=== PATIENT | female | born 1985 ===

== ENCOUNTER 2016-07-08 08:21 | Day surgery (SDC) | payer OTHER ==
--- NOTE | 2016-07-07 19:13 | HISTORY AND PHYSICAL ---
ADMITTED: 07/08/2016 HISTORY OF PRESENT ILLNESS: The patient is a 30-year-old female who presents with a painful left fifth toe. She states it is symptomatic and painful since she had previous surgery there several years ago; however, it was unsuccessful, says it is now painful with shoe gear and she participates in [employer]. MEDICAL/SURGICAL HISTORY: Past medical history: Noncontributory. Surgical history: As stated, the previous surgery on her fifth toe, left foot, several years ago. MEDICATIONS: 1. Currently on no medications. ALLERGIES: 1. REPORTS NO DRUG OR FOOD ALLERGIES. SOCIAL HISTORY: She is single. Employed at [employer]. Smokes minimally to 5 cigarettes per day. Drinks socially. FAMILY HISTORY: Noncontributory to chief complaint. REVIEW OF SYSTEMS: Ten-point review of systems noncontributory to chief complaint. PHYSICAL EXAMINATION: GENERAL: The patient is alert, oriented x3. HEENT: PERRLA. Normocephalic. HEART: Regular rate and rhythm. Regular S1 and S2. LUNGS: Respiration clear to auscultation. No wheezing, rhonchi, or rales. ABDOMEN: Soft, tender, nondistended. No palpable masses. EXTREMITIES: Lower extremity/Vascular: DP and PT pulses are palpable. Skin texture and turgor within normal limits. NEUROLOGIC: Deep tendon reflexes, epicritic sensations are intact. Muscle strength: Dorsiflexion, plantarflexion, inversion/eversion are intact bilaterally, increased, symmetrical. There is pain on palpation to the distal aspect of the fifth toe, particularly subungually. LAB/IMAGING: Imaging taken at [facility] revealed an exostosis of the distal phalanx consistent in projecting up through the nail bed. IMPRESSION: 1. Exostosis fifth digit distal phalanx, left foot. PLAN: The patient is scheduled for an outpatient procedure consisting of exostectomy of the fifth digit, left foot. No contraindications to surgery at this time. Surgery is scheduled on outpatient basis at [facility] 07/08/2016.
--- NOTE | 2016-07-07 19:13 | HISTORY AND PHYSICAL ---
ADMITTED: 07/08/2016 HISTORY OF PRESENT ILLNESS: The patient is a 30-year-old female who presents with a painful left fifth toe. She states it is symptomatic and painful since she had previous surgery there several years ago; however, it was unsuccessful, says it is now painful with shoe gear and she participates in [employer]. MEDICAL/SURGICAL HISTORY: Past medical history: Noncontributory. Surgical history: As stated, the previous surgery on her fifth toe, left foot, several years ago. MEDICATIONS: 1. Currently on no medications. ALLERGIES: 1. REPORTS NO DRUG OR FOOD ALLERGIES. SOCIAL HISTORY: She is single. Employed at [employer]. Smokes minimally to 5 cigarettes per day. Drinks socially. FAMILY HISTORY: Noncontributory to chief complaint. REVIEW OF SYSTEMS: Ten-point review of systems noncontributory to chief complaint. PHYSICAL EXAMINATION: GENERAL: The patient is alert, oriented x3. HEENT: PERRLA. Normocephalic. HEART: Regular rate and rhythm. Regular S1 and S2. LUNGS: Respiration clear to auscultation. No wheezing, rhonchi, or rales. ABDOMEN: Soft, tender, nondistended. No palpable masses. EXTREMITIES: Lower extremity/Vascular: DP and PT pulses are palpable. Skin texture and turgor within normal limits. NEUROLOGIC: Deep tendon reflexes, epicritic sensations are intact. Muscle strength: Dorsiflexion, plantarflexion, inversion/eversion are intact bilaterally, increased, symmetrical. There is pain on palpation to the distal aspect of the fifth toe, particularly subungually. LAB/IMAGING: Imaging taken at [facility] revealed an exostosis of the distal phalanx consistent in projecting up through the nail bed. IMPRESSION: 1. Exostosis fifth digit distal phalanx, left foot. PLAN: The patient is scheduled for an outpatient procedure consisting of exostectomy of the fifth digit, left foot. No contraindications to surgery at this time. Surgery is scheduled on outpatient basis at [facility] 07/08/2016.
[~2016-07-08] VITALS: Ht 160 cm; Wt 61.1 kg
--- NOTE | 2016-07-08 10:25 | Provider's Discharge Care Plan ---
Problem, Goal, Plan Problem List 1. Hypertrophy of bone, left ankle and foot Goals: Improve function Instructions: Follow up as directed
--- NOTE | 2016-07-08 10:25 | Provider's Discharge Care Plan ---
Problem, Goal, Plan Problem List 1. Hypertrophy of bone, left ankle and foot Goals: Improve function Instructions: Follow up as directed
[2016-07-08] MEDS ORDERED: ZOFRAN4 MG PO (10:26)
[2016-07-08] MEDS ORDERED: PERCOCET1 TA4 PO (10:26)
[2016-07-08] MEDS ORDERED: CEPHALEXIN500 MG PO (10:32)
--- NOTE | 2016-07-08 11:02 | OPERATIVE REPORT ---
DATE OF SURGERY: 07/08/2016 SURGEON: Willie Brady DPM PREOPERATIVE DIAGNOSIS: 1. Exostosis, fifth digit, left foot POSTOPERATIVE DIAGNOSES: 1. Exostosis, fifth digit, left foot PROCEDURE PERFORMED: 1. Exostectomy, fifth digit, left foot ANESTHESIA: IV sedation with local, local being 6 mL of 0.5% bupivacaine plain. HEMOSTASIS: Achieved by a [place] drain. MATERIALS: 3-0 and 4-0 Surgipro. COMPLICATIONS: None. CONDITION: The patient tolerated anesthesia and procedure well. INDICATIONS: The patient is a 30-year-old female with a chief complaint of a painful fifth digit, left foot. She had previously had surgery there. There was redundant hypertrophy of bone which is painful. She has exhausted conservative care and would like to proceed with surgical intervention. All pre, divya and postoperative course are covered in detail as well as planned procedure. No contraindications to surgery at this time. SURGICAL TECHNIQUE: The patient was brought to the operating room and placed on the table in the supine position. At this time, IV sedation LMA was carried out. The left lower extremity was prepped and draped in normal sterile fashion. An intraoperative pause was carried out for positive identification, proper limb, and consent form verified and confirmed. Attention was then directed to procedure #1. Exostectomy, fifth digit, left foot: At this time, a [place] [employer] drain was then placed at the base of the fifth digit and engaged with a curved hemostat. A fishmouth incision was made distally. With the aid of fluoroscopy, the hypertrophied distal phalanx was visualized with fluoroscopy guidance. Periosteal elevator was utilized to reflect the periosteum. A bone rongeur was then used to reduce the hypertrophied bone. A handheld rasp was used to rasp down to a smooth level and contoured. The area was flushed. Verified under fluoroscopy for no longer any hypertrophied bone and was now smooth and flush. The skin edge was then reapproximated with 4-0 Polysorb. The Chery was released, the toe was locally anesthetized with the aforementioned anesthetic of 6 mL. A light compressive dressing was applied. The patient tolerated anesthesia and procedure well and left the operating room with vital signs stable. While in recovery, written instructions of weightbearing to tolerance with the aid of a postoperative shoe. Prognosis is guarded. She will be discharged home in stable condition.
[2016-07-08 12:34] VITALS: BP 108/75
== END 2016-07-08 12:53 | disposition home or self-care (01) ==
LOC: SDC SRH 08:21 → SCU SRH 08:21 → SDC SRH 09:30 → OR SRH 10:30 → SDC SRH 12:53
PROVIDERS: Podiatrist
PROC: 0QBR0ZZ Excision of Left Toe Phalanx, Open Approach (ICD-10-PCS; principal; 2016-07-08 10:30)
DX: M89.372 Hypertrophy of bone, left ankle and foot (principal); Z72.0 Tobacco use
CPT/HCPCS: 29229; 29240; 50004; 60001; 70002; 80575; 84038; 84233; 84522; 90074; 90100; 95059; 98428